=== PATIENT | female | born 1945 | race Caucasian/White ===

== ENCOUNTER 2024-03-06 14:07 | Emergency (ER) | payer OTHER, SELFPAY ==
[2024-03-06 14:15] VITALS: BP 170/101
--- NOTE | 2024-03-06 14:58 | ED.GENMED ---
History of Present Illness
<SYDNIE Logan - Last Filed: 03/08/24 01:52>
General
Chief Complaint: Fall
Source: patient
Exam Limitations: none
Time Seen by Provider: 03/06/24 14:58
Nursing documentation reviewed up to this point in time: agreed with
History of Present Illness
History of Present Illness:
Patient is an 78-year-old female presents to the ER for evaluation after fall. Patient was walking her dog and could feel herself going forward and fell landing on her left face. She had her phone and called her son. She was down the street when
she fell. She denies loss of conscious. She is not on blood thinners. She does have a mild headache. She has some bruising to the left side of her face. She has had issues balance off and on for years this is not new. She recently saw her
family doctor for evaluation of falls and was recommended physical therapy but declined
Patient denies any recent illness fever chills. She denies any nausea vomiting. She denies any neck pain back pain. She denies any recent UTI symptoms.
Past History
<SYDNIE Logan - Last Filed: 03/08/24 01:52>
Past History
ED Past Medical History: HTN and Psychiatric (Depression)
ED Past Surgical History: Cholecystectomy
Social History
Tobacco: Non-smoker
Alcohol: None
Personal:
Living: with family
Employment: Retired
Family History
Family History: Other (Noncontributory)
Phy Exam
<SYDNIE Logan - Last Filed: 03/08/24 01:52>
General Physical Exam
General Presentation: no apparent distress
General age: appears stated age
General Skin: warm and dry
General Habitus: normal
General Mental: alert
General Hydration: appears well hydrated
ENT Exam
ENT Exam: EOMI and other (No entrapment)
Eye Exam
Eye Exam: PERRL and EOMI
Eye Exam General: PERRL: bilateral and EOM intact: bilateral
Pupil Exam: Bilateral: round and reactive
Cardiovascular Exam
Cardiovascular Exam: regular rate/rhythm, no murmur and normal peripheral pulses
Pulmonary Exam
Pulmonary Exam: lungs clear and no respiratory distress
Neurological Exam
Neurological Exam: alert and oriented x3
Musculoskeletal Exam
Musculoskeletal Exam: other (Abrasion/ecchymosis to left orbital region mildly tender on exam no step-offs; no bony C-spine tenderness)
Skin Exam
Skin Exam: normal color and warm/dry
Psychiatric Exam
Psychiatric Exam: normal mood/affect
Course
<SYDNIE Logan - Last Filed: 03/08/24 01:52>
Orders/Labs/Results
Orders:
Orders
03/06/24 14:30
EKG [Electrocardiogram (*1)] Urgent
Reason for Study: Vertigo / Dizzy
CT Cervical Spine W/o Iv Contr Urgent
Comment: not on thinners
Reason For Exam: s/p fall + head strike
CT Facial Bones W/o Iv Contras Urgent
Comment: no thinners
Reason For Exam: s/p fall + head strike
CT Head W/o Iv Contrast Urgent
Comment: no thinners
Reason For Exam: s/p fall + head strike
EKG- Treatment ONCE
03/06/24 15:13
IV Insert/Care/Rem.- Treatment PRN
03/06/24 15:23
Complete Blood Count/With Diff Urgent
Comprehensive Metabolic Panel Urgent
03/06/24 16:32
Urinalysis Reflex To Culture Urgent
Date Specimen was Collected: 03/06/24
Time Specimen was Collected: 16:13
Urine Microscopic Reflex Cult Urgent
Abnormal Lab Results
03/06/24 03/06/24
15:23 16:32
MCH 31.5 H pg
(27.0-31.0)
Absolute Monos (auto) 0.7 H 10^3/uL
(0.1-0.6)
Lymphocytes % 19.1 L %
(20.5-51.1)
Glucose 107 H mg/dl
(70-99)
AST 38 H U/L
(14-36)
Leukocyte Esterase Rfl Trace A
(Negative)
Urine Bacteria (Reflex) Few A
(Negative)
03/06/24 15:23
03/06/24 15:23
Vital Signs
Initial and Last Documented VS:
Initial Vital Signs
Temp Pulse Resp BP Pulse Ox
98.1 F 99 18 170/101 96
03/06/24 14:15 03/06/24 14:15 03/06/24 14:15 03/06/24 14:15 03/06/24 14:15
Last Documented Vital Signs
Temp Pulse Resp BP Pulse Ox
98.1 F 82 15 144/85 96
03/06/24 14:15 03/06/24 17:30 03/06/24 17:30 03/06/24 17:00 03/06/24 17:30
<Surya Cerda Jr., PA-C - Last Filed: 03/06/24 17:37>
Orders/Labs/Results
Orders:
Orders
03/06/24 14:30
EKG [Electrocardiogram (*1)] Urgent
Reason for Study: Vertigo / Dizzy
CT Cervical Spine W/o Iv Contr Urgent
Comment: not on thinners
Reason For Exam: s/p fall + head strike
CT Facial Bones W/o Iv Contras Urgent
Comment: no thinners
Reason For Exam: s/p fall + head strike
CT Head W/o Iv Contrast Urgent
Comment: no thinners
Reason For Exam: s/p fall + head strike
EKG- Treatment ONCE
03/06/24 15:13
IV Insert/Care/Rem.- Treatment PRN
03/06/24 15:23
Complete Blood Count/With Diff Urgent
Comprehensive Metabolic Panel Urgent
03/06/24 16:32
Urinalysis Reflex To Culture Urgent
Date Specimen was Collected: 03/06/24
Time Specimen was Collected: 16:13
Urine Microscopic Reflex Cult Urgent
Abnormal Lab Results
03/06/24 03/06/24
15:23 16:32
MCH 31.5 H pg
(27.0-31.0)
Absolute Monos (auto) 0.7 H 10^3/uL
(0.1-0.6)
Lymphocytes % 19.1 L %
(20.5-51.1)
Glucose 107 H mg/dl
(70-99)
AST 38 H U/L
(14-36)
Leukocyte Esterase Rfl Trace A
(Negative)
Urine Bacteria (Reflex) Few A
(Negative)
03/06/24 15:23
03/06/24 15:23
Vital Signs
Initial and Last Documented VS:
Initial Vital Signs
Temp Pulse Resp BP Pulse Ox
98.1 F 99 18 170/101 96
03/06/24 14:15 03/06/24 14:15 03/06/24 14:15 03/06/24 14:15 03/06/24 14:15
Last Documented Vital Signs
Temp Pulse Resp BP Pulse Ox
98.1 F 82 15 144/85 96
03/06/24 14:15 03/06/24 17:30 03/06/24 17:30 03/06/24 17:00 03/06/24 17:30
<SYDNIE Logan - Last Filed: 03/08/24 01:52>
MDM/Problems Addressed
Differential Diagnosis Includes:
Not limited to chronic falls, head injury/facial contusion versus fracture
MDM/Problems Addressed:
78-year-old female with history of balance issues presents to the ER for evaluation of fall around 12 PM while walking her dog. She fell forward landing on her face. No loss of consciousness. She is not on blood thinners. Patient presents with
obvious bruising to the left orbital region with no step-offs no entrapment. Will check CT head and neck/facial bones. Patient reports she did see her family doctor recently for evaluation of falls and was recommended physical therapy but declined
at that time. I did reiterate with both patient and son the importance of close outpatient follow-up with family doctor that she likely will need physical therapy for balance issues.
Labs unremarkable will check urine and if CAT scans and urine negative plan to discharge home with outpatient by family doctor
<SYDNIE Logan - Last Filed: 03/08/24 01:52>
*Radiology
Radiology exam reviewed: radiology read reviewed
<Surya Cerda Jr., PA-C - Last Filed: 03/06/24 17:37>
*Critical Care Note
Total Time (30-74mins, 75-104mins- exclusive of procedures): Not Applicable
ED Attending Note
<SYDNIE Logan - Last Filed: 03/08/24 01:52>
-
Portions of this chart may have been created with voice recognition software.� Occasional wrong word or��sound alike� substitutions may have occurred due to the inherent limitations of voice recognition software.
Discharge Plan
Departure
Patient Disposition: Home (Routine Discharge)
Date of Disposition: 03/06/24
Time of Disposition: 17:37
Patient with high blood pressure during this ER visit?: Yes
Condition: Fair
Covid-19: Not Applicable
Discharge Problem:
Contusion of face, Fall
Instructions: Head Injury in Adults (DC), Contusion (DC)
Referrals:
January Bey MD [Family Provider] -
Activity Restrictions/Additional Instructions:
As discussed please follow-up with your family doctor for further evaluation of falls and discussed physical therapy as recommended.
you may ice over affected area for the next 24 hours 20 minutes at a time several times a day
Return if any worsening of symptoms.
Interventions
Interventions:
*Risk Screen - Suicide Last Done: 03/06/24 15:28
*General Assessment Last Done: 03/06/24 15:28
*Neglect/Abuse Screening Last Done: 03/06/24 15:28
ED- Fall Risk Assessment Last Done: 03/06/24 17:51
*ED COVID-19 Vaccine History Last Done: 03/06/24 14:15
*Nursing Disposition Last Done: 03/06/24 17:51
ED-Musculoskeletal Assessment Last Done: 03/06/24 16:13
ED- Neurological Assessment Last Done: 03/06/24 15:27
ED-Skin Assessment Last Done: 03/06/24 15:27
Discharge Date and Time
Discharge Date/Time: 03/06/24 17:55
Print Language: BENGALI
[2024-03-06 15:04] VITALS: BP 169/107
[2024-03-06 15:32] LABS: % Basophils 0.8 % (0-2); % Eosinophils 1.8 % (0-6); % Immature Granulocytes 0.3 % (0-0.5); % Lymphocytes 19.1 % (20.5-51.1); % Monocytes 8.3 % (1.7-9.3); % Neutrophils 69.7 % (42.2-75.2); Absolute Basophils 0.1 10^3/uL (0-0.2); Absolute Eosinophils 0.2 10^3/uL (0-0.7); Absolute Lymphocytes 1.7 10^3/uL (1.2-3.4); Absolute Monocytes 0.7 10^3/uL (0.1-0.6); Absolute Neutrophils 6.1 10^3/uL (1.4-6.5); Hematocrit 41.5 % (37.0-47.0); Hemoglobin 14.8 g/dL (12.0-16.0); Mean Corp Hgb Conc. 35.7 g/dL (33.0-37.0); Mean Corpuscular Hgb 31.5 pg (27.0-31.0); Mean Corpuscular Volume 88.3 fL (81.0-99.0); Mean Platelet Volume 9.8 fL (7.4-10.4); Nucleated Red Blood Cells % 0 %; Platelet Count 265 10^3/uL (130-400); White Blood Cell Count 8.7 10^3/uL (4.8-10.8)
[2024-03-06 15:48] LABS: ALT (SGPT) 24 U/L (0-35); AST (SGOT) 38 U/L (14-36); Albumin 4.6 g/dl (3.5-5.0); Alkaline Phosphatase 117 U/L (38-126); Blood Urea Nitrogen 13 mg/dl (7-17); Calcium 9.8 mg/dl (8.4-10.2); Carbon Dioxide 24 mmol/L (22-30); Chloride 100 mmol/L (98-107); Glucose 107 mg/dl (70-99); Potassium 3.8 mmol/L (3.5-5.1); Sodium 139 mmol/L (135-145); Total Bilirubin 0.7 mg/dl (0.2-1.3); Total Protein 7.7 g/dl (6.3-8.2); eGFR > 60.00
[2024-03-06 16:31] VITALS: BP 154/101
[2024-03-06 16:43] LABS: Urine Albumin Negative (Neg - Trace); Urine Bilirubin Negative (Negative); Urine Character Clear (Clear); Urine Color Straw; Urine Glucose Negative (Negative); Urine Ketone Negative (Negative); Urine Leukocyte Trace (Negative); Urine Nitrite Negative (Negative); Urine Occult Blood Negative (Negative); Urine Urobilinogen Negative (Neg - 1+)
[2024-03-06 17:00] VITALS: BP 144/85
[2024-03-06 17:16] LABS: Urine Urothelial Cell 0-2 /LPF (FEW)
[2024-03-06 17:17] LABS: Urine Bacteria Few (Negative); Urine Red Blood Cell 0-2 /HPF (0-2); Urine White Cell 0-2 /HPF (0-5)
== END 2024-03-06 17:55 | disposition home or self-care (01) ==
LOC: EMR 14:07
PROVIDERS: Nurse Practitioner; EMERGENCY PHYSICIAN Emergency Medicine; FAMILY PHYSICIAN Family Medicine
DX: S05.12XA Contusion of eyeball and orbital tissues, left eye, initial encounter (principal); W18.39XA Other fall on same level, initial encounter; Y93.K1 Activity, walking an animal; I10 Essential (primary) hypertension; Z90.49 Acquired absence of other specified parts of digestive tract
CPT/HCPCS: 99284; 70450; 70486; 72125; 80053; 81003; 81015; 85025; 93005

== ENCOUNTER 2025-04-01 07:17 | Emergency (ER) | payer OTHER, SELFPAY ==
[2025-04-01 07:19] VITALS: BP 185/101
--- NOTE | 2025-04-01 07:41 | ED.GENMED ---
History of Present Illness
General
Chief Complaint: Musculo-Skeletal Complaint
Time Seen by Provider: 04/01/25 07:30
History of Present Illness
History of Present Illness:
79-year-old female with history of hypertension presents to the emergency department for evaluation of neck stiffness and neck pain for the past 3 days. Reports she initially had a headache at the onset of symptoms but this has since resolved. Has
been using ibuprofen with minimal relief. Reports minimal pain in head and neck for health stationary but reports significant difficulty rotating or flexing the neck. Denies any injuries or trauma. No associated fever, chills, sweats, vision
changes, extremity paresthesias, extremity weakness, or chest pain.
Past History
Past History
ED Past Medical History: HTN and Psychiatric (Depression)
ED Past Surgical History: Cholecystectomy
Social History
Tobacco: Non-smoker
Alcohol: None
Personal:
Living: with family
Employment: Retired
Family History
Family History: Other (Noncontributory)
Review of Systems
Review of Systems
Allergies reviewed?: Yes
All Other Systems: ROS reviewed and negative except as documented in HPI and ROS
Phy Exam
Physical Exam
Physical Exam:
GEN: Well appearing, NAD, WDWN
HEENT: Oral mucosa moist, no scleral icterus
Cardiac: Regular rate and rhythm, no murmur
Lung: No respiratory distress, no tachypnea
MSK: No gross deformity or injuries. No reproduced tenderness along the paraspinous or midline spinous processes. Limited range of motion in all directions secondary to pain/stiffness.
Skin: Good color, no pallor or jaundice, no rashes
Neuro: AO x3, moves all extremities freely. Bilateral upper extremity strength is 5 out of 5 in all diggs and symmetric bilaterally extremity sensation intact in all diggs and symmetric.
Psych: Calm, cooperative
Course
Orders/Labs/Results
Orders:
Orders
04/01/25 07:41
Diazepam [Valium] 2 mg PO NOW STA
Ketorolac [Toradol] 30 mg IM NOW STA
04/01/25 07:42
CR Cervical Spine 4 Or 5 Vw Urgent
Comment:
Reason For Exam: neck pain
Vital Signs
Initial and Last Documented VS:
Initial Vital Signs
Temp Pulse Resp BP Pulse Ox
98.1 F 97 16 185/101 96
04/01/25 07:19 04/01/25 07:19 04/01/25 07:19 04/01/25 07:19 04/01/25 07:19
Last Documented Vital Signs
Temp Pulse Resp BP Pulse Ox
98.1 F 83 18 163/89 97
04/01/25 07:19 04/01/25 09:01 04/01/25 09:01 04/01/25 09:01 04/01/25 08:11
MDM/Problems Addressed
MDM/Problems Addressed:
I suspect this is all musculoskeletal neck pain. No fevers to suggest meningitis. No neurologic findings concerning for spinal cord compression or vascular etiology. Did improve somewhat at time of discharge. Will treat with a course of NSAIDs
and muscle relaxants, recommend primary care follow-up
*Pulse Oximetry
SaO2: 96
Oxygen Mode of Delivery: Room air
Patient hypoxic: no
*Critical Care Note
Total Time (30-74mins, 75-104mins- exclusive of procedures): Not Applicable
ED Attending Note
-
Portions of this chart may have been created with voice recognition software.� Occasional wrong word or��sound alike� substitutions may have occurred due to the inherent limitations of voice recognition software.
Discharge Plan
Departure
Patient Disposition: Home (Routine Discharge)
Date of Disposition: 04/01/25
Time of Disposition: 08:55
Patient with high blood pressure during this ER visit?: Yes
Discharge Problem:
Cervical paraspinal muscle spasm
Instructions: Torticollis, Adult
Prescriptions:
New
celecoxib [Celebrex] 200 mg capsule
200 mg PO BID Qty: 20 0RF
methocarbamol 500 mg tablet
500 mg PO TID PRN (Reason: neck pain) Qty: 10 0RF
Referrals:
January Bey MD [Family Provider, Family Practice]
Activity Restrictions/Additional Instructions:
Follow up with your primary care doctor in 7-10 days
Interventions
Interventions:
*Risk Screen - Suicide Last Done: 04/01/25 07:21
*General Assessment Last Done: 04/01/25 08:07
*Neglect/Abuse Screening Last Done: 04/01/25 07:21
*ED COVID-19 Vaccine History Last Done: 04/01/25 08:07
*ED Influenza Vaccine History Last Done: 04/01/25 08:07
[facility] Risk Assessment Tool Last Done: 04/01/25 08:07
*Nursing Disposition Last Done: 04/01/25 09:01
ED-Musculoskeletal Assessment Last Done: 04/01/25 08:07
Discharge Date and Time
Discharge Date/Time: 04/01/25 09:04
Print Language: PERSIAN
[2025-04-01] MEDS: VALIUM 2 MG PO (08:02)
[2025-04-01] MEDS: TORADOL 30 MG IM (08:02)
[2025-04-01 08:07] VITALS: BMI 25.5
[2025-04-01 08:11] VITALS: BP 155/95
[2025-04-01 09:01] VITALS: BP 163/89
== END 2025-04-01 09:04 | disposition home or self-care (01) ==
LOC: EMR 07:17
PROVIDERS: EMERGENCY PHYSICIAN Emergency Medicine; FAMILY PHYSICIAN Family Medicine
DX: M62.838 Other muscle spasm (principal); I10 Essential (primary) hypertension; Z90.49 Acquired absence of other specified parts of digestive tract
CPT/HCPCS: 96372; 99284; 72050